=== PATIENT | female | born 1960 | race Hispanic/Latino ===

== ENCOUNTER 2018-01-16 12:08 | Emergency (ER) | payer OTHER, SELFPAY ==
[2018-01-16] MEDS ORDERED: HYDROCODONE/APAP 5/325 MG TAB ONE (12:14)
--- NOTE | 2018-01-16 14:30 | RAD REPORT ---
EXAM DESCRIPTION: CT - C Spine Wo Con - 01/16/2018 1:59 pm CLINICAL HISTORY: Trauma, fall, neck injury. COMPARISON: None. TECHNIQUE: Axial 2 mm thick images of the cervical spine were obtained with sagittal and coronal rec onstruction images generated and reviewed. All CT scans are performed using dose optimization technique as appropriate and may include automated exposure control or mA/KV adjustment according to patient size. FINDINGS: No fracture is seen. There is widening of the spinous processes as well as the posterior d isc space at C6-7. This could indicate a flexion injury with ligamentous tear/injury. Advise MR cervi josr spine followup. IMPRESSION: Posterior ligamentous complex injury may be present at C6-7. No fractures seen. MR cervical spine followup would be recommended. Findings were discussed with Dr. Lorenzana in the ER 2:30 p.m. 01/16/2018 by telephone.
--- NOTE | 2018-01-16 15:40 | RAD REPORT ---
EXAM DESCRIPTION: MRI - C Spine Wo Cont CLINICAL HISTORY: Neck injury, radiculopathy COMPARISON: CT neck 01/16/2018 FINDINGS: Cervical vertebral bodies are normal in height and alignment. No suspicious marrow edema or marrow replacing process. No fracture or traumatic subluxation. The craniocervical junction is normal. C2-3 level: No significant findings. C3-4 level: No significant findings. C4-5 level: No significant findings. C5-6 level: Small disc/ osteophyte complex is present with mild attenuation of the anterior subarachn oid space. C6-7 level: Small to moderate disc/ osteophyte complex is present with mild attenuation of the anteri or subarachnoid space central canal is narrowed to 10-11 mm. C7-T1 level: No significant findings. Cervical cord is normal in size and signal. IMPRESSION: No acute traumatic cervical spine finding. Mild lower cervical degenerative change.
--- NOTE | 2018-01-16 16:51 | ER ---
Nurse's Notes [facility] Name: Ally Ochoa Age: 57 yrs Sex: Female : 1960 Arrival Date: 01/16/2018 Time: 12:13 Bed 18 Private MD: Diagnosis: Cervicalgia Presentation: 01/16 12:00 Presenting complaint: EMS states: Patient tripped over some scaffolding that was low to aj1 the ground and hit her head on a bar. Patient reports pain to the back of her neck, forehead, right knee, and left carney. Patient denies syncope, vomiting. Back board and C collar in place. Transition of care: patient was not received from another setting of care. Onset of symptoms was January 16, 2018. Initial Sepsis Screen: Does the patient meet any 2 criteria? No. Patient's initial sepsis screen is negative. Does the patient have a suspected source of infection? No. Patient's initial sepsis screen is negative. Care prior to arrival: Cervical collar in place. Placed on backboard. Dr. Lorenzana at bedside. Back board and C collar removed. 12:00 Method Of Arrival: EMS: [facility] aj1 12:00 Acuity: JUAN RAMON 3 aj1 Triage Assessment: 12:23 General: Appears in no apparent distress. comfortable, Behavior is calm, cooperative, aj1 appropriate for age. Pain: Complains of pain in forehead, right knee and neck and left carney Pain does not radiate. Pain currently is 8 out of 10 on a pain scale. Quality of pain is described as sharp, Alleviated by rest, Aggravated by weight bearing. Historical: - Allergies: 12:23 No Known Allergies; aj1 - Home Meds: 12:23 hydrocodone [Active]; Lipitor Oral [Active]; aj1 - PMHx: 12:23 Hyperlipidemia; Lupus; aj1 - PSHx: 12:23 Cholecystectomy; Tubal ligation; aj1 - Immunization history:: Adult Immunizations up to date. - Social history:: Smoking status: Patient/guardian denies using tobacco. Screenin:26 Abuse screen: Denies threats or abuse. Denies injuries from another. Nutritional aj1 screening: No deficits noted. Tuberculosis screening: No symptoms or risk factors identified. 17:28 Fall Risk None identified. aj1 Assessment: 12:26 General: Appears in no apparent distress. uncomfortable, Behavior is calm, cooperative, aj1 appropriate for age. Pain: Complains of pain in neck and right knee and forehead and left carney Pain does not radiate. Pain currently is 8 out of 10 on a pain scale. Quality of pain is described as sharp. Neuro: Level of Consciousness is awake, alert, obeys commands, Oriented to person, place, time, situation, Cafeteria Associate are equal bilaterally Moves all extremities. Full function Gait is steady, Speech is normal, Facial symmetry appears normal, Pupils are PERRLA, Tingling in right leg Denies syncope, vomiting. Cardiovascular: Patient's skin is warm and dry. Respiratory: Airway is patent Respiratory effort is even, unlabored, Respiratory pattern is regular, symmetrical. GI: No signs and/or symptoms were reported involving the gastrointestinal system. : No signs and/or symptoms were reported regarding the genitourinary system. EENT: No signs and/or symptoms were reported regarding the EENT system. Derm: Skin is pink, warm \T\ dry. normal. Musculoskeletal: Circulation, motion, and sensation intact. Capillary refill < 3 seconds, in bilateral toes. Range of motion: intact in all extremities. 13:22 Reassessment: Patient appears in no apparent distress at this time. No changes from aj1 previously documented assessment. Patient and/or family updated on plan of care and expected duration. Pain level reassessed. Patient is alert, oriented x 3, equal unlabored respirations, skin warm/dry/pink. 14:21 Reassessment: Patient appears in no apparent distress at this time. No changes from aj1 previously documented assessment. Patient and/or family updated on plan of care and expected duration. Pain level reassessed. Patient is alert, oriented x 3, equal unlabored respirations, skin warm/dry/pink. 14:32 Reassessment: Patient placed back in C- collar. aj1 15:54 Reassessment: Patient and/or family updated on plan of care and expected duration. Pain aj1 level reassessed. General: Appears in no apparent distress. comfortable, Behavior is calm, cooperative. Neuro: Level of Consciousness is awake, alert, obeys commands, Oriented to person, place, time, situation, Cafeteria Associate are equal bilaterally Moves all extremities. Full function Speech is normal, Facial symmetry appears normal. Cardiovascular: Patient's skin is warm and dry. Respiratory: Airway is patent Respiratory effort is even, unlabored, Respiratory pattern is regular, symmetrical. Derm: Skin is pink, warm \T\ dry. normal. Musculoskeletal: Circulation, motion, and sensation intact. 16:45 Reassessment: Patient appears in no apparent distress at this time. No changes from aj1 previously documented assessment. Patient and/or family updated on plan of care and expected duration. Pain level reassessed. Patient is alert, oriented x 3, equal unlabored respirations, skin warm/dry/pink. 17:26 Reassessment: Patient appears in no apparent distress at this time. No changes from aj1 previously documented assessment. Patient and/or family updated on plan of care and expected duration. Pain level reassessed. Patient is alert, oriented x 3, equal unlabored respirations, skin warm/dry/pink. Vital Signs: 12:23 BP 152 / 89; Pulse 79; Resp 18; Temp 98.2(TE); Pulse Ox 98% on R/A; Weight 95.25 kg; aj1 Height 5 ft. 0 in. (152.40 cm); Pain 8/10; 13:22 BP 142 / 85; Pulse 80; Resp 18; Pulse Ox 100% ; aj1 14:21 BP 118 / 74; Pulse 82; Resp 18; Pulse Ox 95% on R/A; aj1 15:55 BP 136 / 81; Pulse 70; Resp 18; Pulse Ox 98% on R/A; aj1 17:26 BP 146 / 74; Pulse 75; Resp 18; Pulse Ox 100% ; aj1 12:23 Body Mass Index 41.01 (95.25 kg, 152.40 cm) aj1 ED Course: 12:13 Patient arrived in ED. aj1 12:13 Marjan Mckeon FNP-C is [facility]. snw 12:14 Vahe Donovan MD is Attending Physician. snw 12:16 Attending Physician role handed off by Vahe Donovan MD ps1 12:16 Brady Lorenzana MD is Attending Physician. ps1 12:19 Erinn Rojas, LISY is Primary Nurse. aj1 12:22 Triage completed. aj1 12:23 Arm band placed on. aj1 12:26 Patient has correct armband on for positive identification. Bed in low position. Call aj1 light in reach. Side rails up X 1. 12:26 No provider procedures requiring assistance completed. aj1 13:57 CT completed. Patient tolerated procedure well. Patient moved to CT via wheelchair. sj Patient moved back from CT. 13:58 CT C Spine In Process Unspecified. EDMS 15:05 Patient moved to MRI via wheelchair. em2 15:24 C Spine Wo Cont In Process Unspecified. EDMS 15:24 MRI completed. Patient tolerated well. Patient moved back from MRI. em2 17:28 Patient did not have IV access during this emergency room visit. aj1 Administered Medications: 12:29 Drug: [place] 5 mg-325 mg 1 tabs Route: PO; aj1 17:31 Follow up: Response: No adverse reaction aj1 Outcome: 16:50 Discharge ordered by MD. ps1 17:29 Discharged to home ambulatory. aj1 17:29 Condition: good 17:29 Discharge instructions given to patient, Instructed on discharge instructions, follow up and referral plans. medication usage, Demonstrated understanding of instructions, follow-up care, medications, Prescriptions given X 6 17:38 Patient left the ED. aj1 Signatures: Dispatcher [employer] Erinn Araujo RN RN aj1 Marjan Mckeon, SPECIAL EDUCATION PARAEDUCATOR-C SPECIAL EDUCATION PARAEDUCATOR-Csnw Sary Solano Enrique em2 Brady Lorenzana MD MD ps1 Corrections: (The following items were deleted from the chart) 15:25 15:24 Reassessment: Patient appears in no apparent distress at this time. No changes aj1 from previously documented assessment. Patient and/or family updated on plan of care and expected duration. Pain level reassessed. Patient is alert, oriented x 3, equal unlabored respirations, skin warm/dry/pink. aj1
--- NOTE | 2018-01-16 16:51 | EDPHYS ---
Physician Documentation [facility] Name: Ally Ochoa Age: 57 yrs Sex: Female : 1960 Arrival Date: 01/16/2018 Time: 12:13 Bed 18 Private MD: ED Physician Brady Lorenzana HPI: 01/16 12:16 This 57 yrs old Female presents to ER via Unassigned with complaints of neck ps1 pain after fall. 12:16 The patient or guardian complains of pain, that is acute. The symptoms are located at ps1 the C6. Onset: The symptoms/episode began/occurred just prior to arrival. Context: The problem was sustained at work. Associated signs and symptoms: The patient has no apparent associated signs or symptoms. The pain does not radiate. Modifying factors: the symptoms are aggravated by movement. Severity of symptoms: At their worst the symptoms were moderate, in the emergency department the symptoms have improved. fall at work from standing height. Had left tibia pain and neck pain.. Historical: - Allergies: 12:23 No Known Allergies; aj1 - Home Meds: 12:23 hydrocodone [Active]; Lipitor Oral [Active]; aj1 - PMHx: 12:23 Hyperlipidemia; Lupus; aj1 - PSHx: 12:23 Cholecystectomy; Tubal ligation; aj1 - Immunization history:: Adult Immunizations up to date. - Social history:: Smoking status: Patient/guardian denies using tobacco. ROS: 12:16 Constitutional: Negative for fever, chills, and weight loss, Eyes: Negative for injury, ps1 pain, redness, and discharge, ENT: Negative for injury, pain, and discharge. 12:16 Cardiovascular: Negative for chest pain, palpitations, and edema, Respiratory: Negative for shortness of breath, cough, wheezing, and pleuritic chest pain, Abdomen/GI: Negative for abdominal pain, nausea, vomiting, diarrhea, and constipation, Back: Negative for injury and pain, Skin: Negative for injury, rash, and discoloration, Neuro: Negative for headache, weakness, numbness, tingling, and seizure. 12:16 Neck: Positive for pain at rest. 12:16 MS/extremity: Positive for contusion, tenderness, of the left carney. Exam: 12:16 Constitutional: This is a well developed, well nourished patient who is awake, alert, ps1 and in no acute distress. Head/Face: Normocephalic, atraumatic. Eyes: Pupils equal round and reactive to light, extra-ocular motions intact. Lids and lashes normal. Conjunctiva and sclera are non-icteric and not injected. ENT: Nares patent. No nasal discharge, no septal abnormalities noted. Tympanic membranes are normal and external auditory canals are clear. Oropharynx with no redness, swelling, or masses, exudates, or evidence of obstruction, uvula midline. Mucous membranes moist. Chest/axilla: Normal chest wall appearance and motion. Nontender with no deformity. No lesions are appreciated. Cardiovascular: Regular rate and rhythm. No gallops, murmurs, or rubs. Normal PMI, no JVD. No pulse deficits. Respiratory: Lungs have equal breath sounds bilaterally, clear to auscultation and percussion. No rales, rhonchi or wheezes noted. No increased work of breathing, no retractions or nasal flaring. Abdomen/GI: Soft, non-tender, with normal bowel sounds. No distension or tympany. No guarding or rebound. No evidence of tenderness throughout. Skin: Warm, dry with normal turgor. Normal color with no rashes, no lesions, and no evidence of cellulitis. 12:16 MS/ Extremity: Pulses equal, no cyanosis. Neurovascular intact. Full, normal range of motion. Neuro: Awake and alert, GCS 15, oriented to person, place, time, and situation. Cranial nerves II-XII grossly intact. Sensory grossly intact. Psych: Awake, alert, with orientation to person, place and time. Behavior, mood, and affect are within normal limits. 12:16 Musculoskeletal/extremity: Extremities: grossly normal except: noted in the left carney: contusion. Vital Signs: 12:23 BP 152 / 89; Pulse 79; Resp 18; Temp 98.2(TE); Pulse Ox 98% on R/A; Weight 95.25 kg; aj1 Height 5 ft. 0 in. (152.40 cm); Pain 8/10; 13:22 BP 142 / 85; Pulse 80; Resp 18; Pulse Ox 100% ; aj1 14:21 BP 118 / 74; Pulse 82; Resp 18; Pulse Ox 95% on R/A; aj1 15:55 BP 136 / 81; Pulse 70; Resp 18; Pulse Ox 98% on R/A; aj1 17:26 BP 146 / 74; Pulse 75; Resp 18; Pulse Ox 100% ; aj1 12:23 Body Mass Index 41.01 (95.25 kg, 152.40 cm) aj MDM: 12:14 Patient medically screened. snw 16:54 Data reviewed: vital signs, nurses notes, radiologic studies. ED course: MRI negative. ps1 Home with anaprox, medrol, robaxin. Follow up with PCP if pain persistent > 2 weeks. Return precautions given. . 01/16 12:19 Order name: CT C Spine; Complete Time: 14:33 ps1 01/16 14:31 Order name: C Spine Wo Cont; Complete Time: 15:41 EDMS Administered Medications: 12:29 Drug: [place] 5 mg-325 mg 1 tabs Route: PO; aj 17:31 Follow up: Response: No adverse reaction [facility] Disposition: 01/16/18 16:50 Discharged to Home. Impression: Cervicalgia. - Condition is Stable. - Discharge Instructions: Musculoskeletal Pain. - Prescriptions for Anaprox DS 550 mg Oral Tablet - take 1 tablet by ORAL route every 12 hours As needed; 20 tablet. Robaxin 500 mg Oral Tablet - take 2 tablet by ORAL route every 6 hours As needed; 40 tablet. Medrol ([place]) 4 mg Oral Tablets, Dose Pack - take 1 tablet by ORAL route as directed - follow package instructions; 1 packet. - Medication Reconciliation Form, Thank You Letter, Antibiotic Education, Prescription Opioid Use form. - Follow up: Private Physician; When: As needed; Reason: Recheck today's complaints, Continuance of care, Re-evaluation by your physician. Follow up: Emergency Department; When: As needed; Reason: Worsening of condition. - Problem is new. - Symptoms have improved. Signatures: Dispatcher [employer] EDMS Erinn Rojas RN RN aj1 Majran Mckeon, PRINTING SERVICES COORDINATOR-C PRINTING SERVICES COORDINATOR-Csnw Brady Lorenzana MD MD ps1
== END 2018-01-16 17:38 | disposition home or self-care (01) ==
LOC: ER 12:08
DX: M54.2 Cervicalgia (principal); W18.39XA Other fall on same level, initial encounter; Y93.89 Activity, other specified; Y92.89 Other specified places as the place of occurrence of the external cause
CPT/HCPCS: 72125; 72141; 99284

== ENCOUNTER 2019-07-23 15:18 | Emergency (ER) | payer SELFPAY ==
[2019-07-23] MEDS ORDERED: MEPERIDINE HCL 25 MG/0.5 ML ONE (15:44)
[2019-07-23] MEDS ORDERED: ONDANSETRON 4 MG/2 ML VIAL ONE (15:44)
[2019-07-23 16:17] LABS: Basophils % 0.3 % (0-1.3); Hematocrit 34.6 % (36.0-45.0); Lymphocytes % 30.3 % (15.3-44.8); RBC Red Blood Cell Count 3.93 M/uL (3.86-4.86)
[2019-07-23 16:32] LABS: Potassium 4.2 mmol/L (3.5-5.1)
--- NOTE | 2019-07-23 16:59 | RAD REPORT ---
EXAM DESCRIPTION: RAD - Elbow Right 3 View - 07/23/2019 4:13 pm CLINICAL HISTORY: Right elbow pain FINDINGS: Cortical regularity involves the radial neck. Given that there does not appear to be a lo nt effusion this probably is secondary to a spur rather than a fracture. No dislocation If patient continues to have symptoms to suggest an occult fracture follow-up x-ray in 1 week would b e recommended
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
--- NOTE | 2019-07-23 17:28 | RAD REPORT ---
EXAM DESCRIPTION: RAD - Hip Right 2 View - 07/23/2019 4:13 pm CLINICAL HISTORY: Right hip pain FINDINGS: No fracture or dislocation is seen.
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
[2019-07-23] MEDS ORDERED: HYDROCODONE/APAP 5/325 MG TAB ONE (17:50)
[2019-07-23 18:39] VITALS: BP 128/76
[2019-07-23 18:40] VITALS: TEMP 98.7; O2SAT 98
== END 2019-07-23 18:05 | disposition home or self-care (01) ==
LOC: ER 15:18
DX: S16.1XXA Strain of muscle, fascia and tendon at neck level, initial encounter (principal); S20.219A Contusion of unspecified front wall of thorax, initial encounter; S30.1XXA Contusion of abdominal wall, initial encounter; S50.01XA Contusion of right elbow, initial encounter; V49.40XA Driver injured in collision with unspecified motor vehicles in traffic accident, initial encounter
CPT/HCPCS: 36415; 70450; 71260; 72125; 74177; 80048; 85025; 86850; 86900; 86901; 96374; 96375; 99285; J2175; J2405; Q9967